=== PATIENT | female | born 1930 | race Caucasian/White ===

== ENCOUNTER 2017-11-12 14:54 | Emergency (ER) | payer MEDICARE ==
[~2017-11-12] VITALS: Ht 154.9 cm; Wt 62.3 kg
[~2017-11-12 14:54] MED LIST: CALC-861 PO; FAMO10TA41 PO; FERR325T28 PO; GLUC-178 PO; MELA2.5T PO; ROSU20TA PO; SYN0.025T PO; VITC500T PO; ZOLP5TAB8 PO
[2017-11-12 14:57] VITALS: BP 181/70
[2017-11-12] MEDS ORDERED: aspirin 325mg tablet PO ONE (15:10)
== END 2017-11-12 16:06 | disposition home or self-care (01) ==
LOC: ER 14:54
DX: M25.531 Pain in right wrist (principal); I25.10 Atherosclerotic heart disease of native coronary artery without angina pectoris; E78.00 Pure hypercholesterolemia, unspecified; I10 Essential (primary) hypertension; Z95.1 Presence of aortocoronary bypass graft; Z88.8 Allergy status to other drugs, medicaments and biological substances; Z79.899 Other long term (current) drug therapy
CPT/HCPCS: 29125; 73110; 99284

== ENCOUNTER 2018-12-29 08:39 | Inpatient (IN) | payer MEDICARE, MEDICAID ==
[2018-12-29] VITALS (14 sets, daily range): BP systolic 73–161; BP diastolic 40–101
[~2018-12-29] VITALS: Ht 157.5 cm; Wt 60.9 kg
[~2018-12-29 08:39] MED LIST changes: -ROSU20TA PO; +ROSU20TA2 PO
[2018-12-29 09:28] LABS: BASOPHILS # (AUTO) 0.1 X10'3 (0-0.2); BASOPHILS % (AUTO) 0.9 % (0-1); EOSINOPHILS % (AUTO) 0.4 % (0-6); LYMPHOCYTES # (AUTO) 0.7 X10'3 (1.1-4.8); LYMPHOCYTES % (AUTO) 9.3 % (21-51); MEAN CORPUSCULAR HEMOGLOBIN 22.7 PG (27.0-31.0); MEAN CORPUSCULAR VOLUME 73.3 FL (78-98); MEAN PLATELET VOLUME 8.2 FL (7.4-10.4); MONOCYTES # (AUTO) 0.7 X10'3 (0-0.9); NEUTROPHILS # (AUTO) 5.9 X10'3 (1.8-7.7); NEUTROPHILS % (AUTO) 80.4 % (42-75); PLATELET COUNT 212 X10'3 (140-440); RED BLOOD COUNT 2.75 X10'6 (4.20-5.60); RED CELL DISTRIBUTION WIDTH 18.8 % (11.5-14.5); WHITE BLOOD COUNT 7.3 X10'3 (4.5-11.0)
[2018-12-29 09:43] LABS: ALANINE AMINOTRANSFERASE 30 U/L (12-78); ALBUMIN 3.3 G/DL (3.4-5.0); ALBUMIN/GLOBULIN RATIO 1.1 (1.1-1.5); ALKALINE PHOSPHATASE 78 IU/L (46-116); ANION GAP 9 (8-16); ASPARTATE AMINO TRANSFERASE 18 U/L (10-37); BILIRUBIN,TOTAL 0.5 MG/DL (0.1-1.0); BLOOD UREA NITROGEN 17 MG/DL (7-18); CALCIUM 8.4 MG/DL (8.5-10.1); CHLORIDE 102 MMOL/L (99-107); CREATININE 0.81 MG/DL (0.40-0.90); GLUCOSE 130 MG/DL (70-104); SODIUM 137 MMOL/L (135-145); TOTAL CARBON DIOXIDE 26.5 MMOL/L (24-32); TOTAL PROTEIN 6.3 G/DL (6.4-8.2); eGFR 67 ML/MIN
[2018-12-29 09:51] LABS: HEMATOCRIT 20.2 % (35.0-45.0); HEMOGLOBIN 6.3 g/dl (12.0-16.0)
[2018-12-29 09:54] LABS: ANISOCYTOSIS 2+; MICROCYTOSIS 1+; PLATELET ESTIMATE NORMAL; TOTAL CELLS COUNTED 100
[2018-12-29 09:56] LABS: HYPOCHROMASIA 2+
[2018-12-29 09:58] LABS: ROULEAUX 2+
[2018-12-29 10:00] LABS: POLYCHROMASIA FEW
[2018-12-29 10:01] LABS: SCHISTOCYTES 1+
[2018-12-29] MEDS ORDERED: iohexol 350MG/ML 100ml bottle IV ONE (10:29)
--- NOTE | 2018-12-29 11:50 | NUR ---
NOTE CONTINUED: 1ST UNIT PRBC STARTED. Addendum: 12/29/18 at 1723 by LAN START TIME OF TRANSFUSION 1150 NOT DOCUMENTED ON TRANSFUSION RECORD.
--- NOTE | 2018-12-29 11:50 | NUR ---
PT UP TO BSC, 300ML CL YELLOW URINE, 1ST UNIT PRB
[2018-12-29 12:47] LABS: CLARITY,URINE SLIGHTLY CLOUDY (Clear); COLOR,URINE YELLOW (Yellow); GLUCOSE, URINE NEGATIVE (Neg); KETONES,URINE NEGATIVE (Neg); LEUKOCYTE ESTERASE ,URINE NEGATIVE (Neg); NITRITES, URINE NEGATIVE (Neg); OCCULT BLOOD,URINE NEGATIVE (Neg); PH,URINE 6.5 (4.8-8.0); PROTEIN,URINE NEGATIVE (Neg); UA COLLECTION TYPE VOIDED; UROBILINOGEN,URINE 0.2 E.U/dL (0.2-1.0)
[2018-12-29 12:58] LABS: SQUAMOUS EPITHELIAL CELL,UR FEW /LPF (FEW)
[2018-12-29 13:00] LABS: BACTERIA,URINE FEW /HPF (Neg); RBC,URINE NONE SEEN /HPF (0-2); WBC,URINE 0-4 /HPF (0-4)
--- NOTE | 2018-12-29 13:38 | NUR ---
1ST UNIT PRBC FINISHED 1338 NOT DOCUMENTED ON TRANSFUSION RECORD. VARAFICATION AND VS DOCUMENTED ON TRANSFUSION RECORD
--- NOTE | 2018-12-29 13:55 | NUR ---
PT BP 85/54, MAP 71, HR 80 AND RR2. BP TAKEN WHILE PT LAYING ON HER R SIDE.
--- NOTE | 2018-12-29 14:08 | NUR ---
PT SAT UP TO SIDE OF BED REPORTING INCREASED SOB AND NOTED TO BE USING ACCESORY MUSCLES. PT REPORTS HER THROAT AND CHEST FEELS TIGHT. BLOOD TRANSFUSION STOPPED AND MD SANDOVAL NOTIFIED AND NOW AT BEDSIDE ASSESSING PT.
[2018-12-29] MEDS ORDERED: methylPREDNISolone sod succ 125mg/2ml vial IV ONE (14:10)
[2018-12-29] MEDS ORDERED: diphenhydrAMINE 50 mg/ml inj IV ONE (14:10)
--- NOTE | 2018-12-29 15:15 | NUR ---
PT C/O LEG CRAMPS FROM SITTING UP IN BED. PT AMBULATING AT BS, DENIES SOB, DENIES DIZZINESS. VSS NO WHEEZING ON SOB
[2018-12-29 16:12] LABS: CLARITY,URINE SLIGHTLY CLOUDY (Clear); COLOR,URINE STRAW (Yellow); GLUCOSE, URINE NEGATIVE (Neg); KETONES,URINE TRACE mg/dl (Neg); LEUKOCYTE ESTERASE ,URINE NEGATIVE (Neg); NITRITES, URINE NEGATIVE (Neg); OCCULT BLOOD,URINE NEGATIVE (Neg); PH,URINE 5.5 (4.8-8.0); PROTEIN,URINE NEGATIVE (Neg); UROBILINOGEN,URINE 0.2 E.U/dL (0.2-1.0)
[2018-12-29] MEDS ORDERED: furosemide 10 MG/1 ML 10ml inj IV ONE (16:15)
[2018-12-29 16:17] LABS: UA COLLECTION TYPE VOIDED
[2018-12-29 16:20] LABS: BACTERIA,URINE NONE SEEN /HPF (Neg); RBC,URINE 0-2 /HPF (0-2); SQUAMOUS EPITHELIAL CELL,UR FEW /LPF (FEW)
[2018-12-29 16:21] LABS: WBC,URINE NONE SEEN /HPF (0-4)
[2018-12-29] MEDS ORDERED: HYDROcodone/acetaminophen 5mg/325mg tablet PO PRN (16:30)
[2018-12-29] MEDS ORDERED: magnesium 4gm in 100ml NS 100 ML IV PRN (16:30)
[2018-12-29] MEDS ORDERED: ondansetron/PF 4mg/2ml inj IV PRN (16:30)
[2018-12-29] MEDS ORDERED: magnesium Cl slow-release 64mg tablet PO PRN (16:30)
[2018-12-29] MEDS ORDERED: acetaminophen 325mg tablet PO PRN ×2 (16:30)
[2018-12-29] MEDS ORDERED: potassium Cl 20 mEq SR tablet PO PRN ×2 (16:30)
[2018-12-29] MEDS ORDERED: magnesium hydroxide 30ml (MOM) UD suspension PO PRN (16:30)
[2018-12-29] MEDS ORDERED: potassium CL 10mEq/100ml bag 100 ML IV PRN ×2 (16:30)
[2018-12-29] MEDS ORDERED: mag hydrox/Alum hydrox/simeth 30ml oral suspension PO PRN (16:30)
[2018-12-29] MEDS ORDERED: magnesium 2GM in 50ml NS 50 ML IV PRN (16:30)
--- NOTE | 2018-12-29 16:48 | NUR ---
DR SHAH AT FOR ADMIT ASSESSMENT
--- NOTE | 2018-12-29 16:58 | NUR ---
PT SITTING ON SIDE OF BED TALKING TO DR SHAH. NO SOB, NO RESP DISTRESS NOTED AT THIS TIME 95% 4L,
[2018-12-29] MEDS: pantoprazole 40mg Tablet.DR PO SCH (17:06)
[2018-12-29 17:14] LABS: % IRON SATURATION 2 % (11-46); IRON 11 UG/DL (49-151); TOTAL IRON BINDING CAPACITY 448 UG/DL (259-388)
[2018-12-29] MEDS ORDERED: TRAZ150T78 PO (17:24)
[2018-12-29] MEDS ORDERED: SERT50TA10 PO (17:26)
[2018-12-29] MEDS ORDERED: MULT-933 PO (17:28)
[2018-12-29] MEDS ORDERED: GINK120T4 PO (17:30)
[2018-12-29] MEDS ORDERED: UBID50TA3 PO (17:33)
[2018-12-29] MEDS ORDERED: CHOL10002 PO (17:34)
[2018-12-29] MEDS ORDERED: LORazepam 0.5 MG tablet PO PRN (17:35)
[2018-12-29] MEDS ORDERED: VITA400C65 PO (17:35)
[2018-12-29] MEDS ORDERED: VITA400C67 PO (17:37)
[2018-12-29] MEDS ORDERED: KRIL500C PO (17:38)
[2018-12-29] MEDS ORDERED: DOCO100C PO (17:39)
[2018-12-29] MEDS ORDERED: VITA-268 PO (17:40)
[2018-12-29] MEDS ORDERED: GLUC-133 PO (17:42)
[2018-12-29] MEDS ORDERED: ASPI-611 PO (17:53)
[2018-12-29 18:09] LABS: PHOSPHORUS 3.6 MG/DL (2.3-4.5)
--- NOTE | 2018-12-29 19:03 | NUR ---
SPOKE WITH BLOOD BANK, THEY HAD PATHOLOGIST REVIEW THE PATIENTS REACTION AND DO NOT BELIEVE THE PATIENT HAD A TRANSFUSION REACTION INSTEAD THEY BELIEVE WHAT WAS DESCRIBED WERE SYMPTOMS OF FLUID OVERLOAD, BLOOD BANK HAS BLOOD AVAILIBLE NOW.
--- NOTE | 2018-12-29 19:17 | NUR ---
REPORT CALLED TO DIVIDING MACHINE OPERATOR HELPER , PT CASE DISCUSSED, I LET HER KNOW THE PATIENTS BLOOD IS AVAILIBLE, DIVIDING MACHINE OPERATOR HELPER AGREES TO ACCEPT PATIENT. PATIENT AND ALL HER BELONGINGS TO BE TRANSPORT TO THE FLOOR.
--- NOTE | 2018-12-29 20:00 | NUR ---
Report recieved from Bernard AMBROCIO in ER for Carolina Kirkland. Patient arrived safe on the surgical floor and she is currently receiving blood transfusion. She shows no sign of distress and is monitored for any adverse reactions.
[2018-12-29] MEDS ORDERED: temazepam 15mg capsule PO PRN (21:00)
--- NOTE | 2018-12-29 21:51 | NUR ---
Patient arrived on the unit around 1999. Daily weight was done in ER Addendum: 12/29/18 at 2152 by Jaqui Bell RN Amended: Links added.
[2018-12-29] MEDS ORDERED: zolpidem 5mg tablet PO PRN (23:20)
[2018-12-30 00:14] VITALS: BP 151/72
[2018-12-30 02:19] LABS: HEMATOCRIT 27.6 % (35.0-45.0); HEMOGLOBIN 8.9 g/dl (12.0-16.0); MEAN CORPUSCULAR HEMOGLOBIN 24.7 PG (27.0-31.0); MEAN CORPUSCULAR HGB CONC 32.4 g/dL (33.0-36.5); MEAN CORPUSCULAR VOLUME 76.4 FL (78-98); MEAN PLATELET VOLUME 8.5 FL (7.4-10.4); PLATELET COUNT 243 X10'3 (140-440); RED BLOOD COUNT 3.61 X10'6 (4.20-5.60); RED CELL DISTRIBUTION WIDTH 20.9 % (11.5-14.5); WHITE BLOOD COUNT 5.6 X10'3 (4.5-11.0)
[2018-12-30 02:33] LABS: ALANINE AMINOTRANSFERASE 28 U/L (12-78); ALBUMIN 3.3 G/DL (3.4-5.0); ALKALINE PHOSPHATASE 81 IU/L (46-116); ANION GAP 7 (8-16); ASPARTATE AMINO TRANSFERASE 16 U/L (10-37); BLOOD UREA NITROGEN 20 MG/DL (7-18); BUN/CREATININE RATIO 26.7 (6.6-38.0); CALCIUM 8.5 MG/DL (8.5-10.1); CHLORIDE 102 MMOL/L (99-107); CHOL/HDL RATIO 2.2 (0.00-4.99); CHOLESTEROL 162 MG/DL (0-200); CREATININE 0.75 MG/DL (0.40-0.90); GLUCOSE 133 MG/DL (70-104); HDL CHOLESTEROL 74 MG/DL (35-60); LDL CHOLESTEROL 84 MG/DL (50-100); MAGNESIUM 1.9 MG/DL (1.5-2.4); PHOSPHORUS 3.5 MG/DL (2.3-4.5); POTASSIUM 3.8 MMOL/L (3.5-5.1); SODIUM 138 MMOL/L (135-145); TOTAL CARBON DIOXIDE 29.1 MMOL/L (24-32); TOTAL PROTEIN 6.6 G/DL (6.4-8.2); TRIGLYCERIDES 55 MG/DL (20-135); eGFR 73 ML/MIN
--- NOTE | 2018-12-30 06:37 | NUR ---
Patient in room [facility]. I have received report from LOLLY Nails and had the opportunity to ask questions and assume patient care.
--- NOTE | 2018-12-30 06:43 | NUR ---
Problems reprioritized. Patient report given, questions answered & plan of care reviewed with Fatemeh AMBROCIO.
[2018-12-30 07:23] VITALS: BP 149/74
[2018-12-30] MEDS: pantoprazole 40mg Tablet.DR PO SCH (07:53)
[2018-12-30] MEDS ORDERED: K and/or MAG REPLACEMENT MC SCH (08:00)
[2018-12-30] MEDS ORDERED: furosemide 20 MG/2 ML vial IV SCH (08:00)
[2018-12-30 11:40] VITALS: BP 129/69
[2018-12-30] MEDS ORDERED: FERR325T28 PO (12:35)
[2018-12-30] MEDS ORDERED: FURO20TA4 PO (12:40)
--- NOTE | 2018-12-30 15:03 | NUR ---
Pt discharged to home at 1445, with all belongings, in private vehicle. Discharge instructions and medications reviewed, new prescriptions delivered by [facility]. Pt provided with information regarding iron rich foods, instructed to follow up with Dr Perdue in 1 week, and to have TSH and BMP drawn in 2 weeks. IV DC'd, cannula intact. Pt escorted to front lobby via wheelchair by PCT.
[2019-02-03 12:48] LABS: OCCULT BLOOD STOOL POSITIVE (Neg)
== END 2018-12-30 14:45 | disposition home or self-care (01) | DRG 291 ==
LOC: ER 08:40 → SUR 3N 19:47 → CMPBEDREQ 19:48 → SUR 3N 21:52
PROVIDERS: ADMIT Family Medicine; ATTEND Family Medicine
PROC: 30233N1 Transfusion of Nonautologous Red Blood Cells into Peripheral Vein, Percutaneous Approach (ICD-10-PCS; principal; 2018-12-29)
DX: I11.0 Hypertensive heart disease with heart failure (principal); I50.31 Acute diastolic (congestive) heart failure; J81.0 Acute pulmonary edema; J96.90 Respiratory failure, unspecified, unspecified whether with hypoxia or hypercapnia; T80.51XA Anaphylactic reaction due to administration of blood and blood products, initial encounter; D50.9 Iron deficiency anemia, unspecified; E03.9 Hypothyroidism, unspecified; E78.00 Pure hypercholesterolemia, unspecified; E78.5 Hyperlipidemia, unspecified; F41.1 Generalized anxiety disorder; G31.84 Mild cognitive impairment of uncertain or unknown etiology; G47.00 Insomnia, unspecified; I25.10 Atherosclerotic heart disease of native coronary artery without angina pectoris; J44.9 Chronic obstructive pulmonary disease, unspecified; T45.8X5A Adverse effect of other primarily systemic and hematological agents, initial encounter; Y84.8 Other medical procedures as the cause of abnormal reaction of the patient, or of later complication, without mention of misadventure at the time of the procedure; K21.9 Gastro-esophageal reflux disease without esophagitis; K57.90 Diverticulosis of intestine, part unspecified, without perforation or abscess without bleeding; R73.03 Prediabetes; Z90.710 Acquired absence of both cervix and uterus; Z95.1 Presence of aortocoronary bypass graft; Z95.5 Presence of coronary angioplasty implant and graft; Z99.81 Dependence on supplemental oxygen; Z88.8 Allergy status to other drugs, medicaments and biological substances; Y92.89 Other specified places as the place of occurrence of the external cause; Z87.891 Personal history of nicotine dependence; Z79.82 Long term (current) use of aspirin; Z79.899 Other long term (current) drug therapy
CPT/HCPCS: 36415; 71045; 71275; 80053; 80061; 81001; 82272; 82607; 83540; 83550; 83735; 83880; 84100; 84443; 84484; 85025; 85027; 85610; 86078; 86885; 86900; 86901; 86920; 87081; 92508; 92616; 93005; 93306; 96374; 96375; 99285; G0378; J1200; J1940; J2930; P9016; Q9967